=== PATIENT | male | born 1985 | race Hispanic/Latino ===

== ENCOUNTER 2016-10-07 13:15 | Emergency (ER) | payer OTHER ==
[~2016-10-07] VITALS: Ht 175.3 cm; Wt 90.7 kg
[~2016-10-07 13:15] MED LIST: AMOXIL500 MG PO; BENTYL20 MG PO; DOXYCYCLINE MO100 MG PO; IBUPROFEN600 MG PO; PROTONIX40 M3 PO; ZOFRAN ODT4 M1 PO; ZOFRAN4 M1 PO
--- NOTE | 2016-10-07 13:53 | ED CARDIAC/CP/PALPITATIONS ---
History of Present Illness General Chief Complaint: Chest Pain Stated Complaint: CHEST PAIN SINCE LAST NIGHT Source: patient Exam Limitations: no limitations Vital Signs & Intake/Output Vital Signs & Intake/Output Vital Signs Date Time Temp Pulse Resp B/P B/P Pulse O2 O2 Flow FiO2 Mean Ox Delivery Rate 10/07 1529 98.3 89 18 124/74 100 Room Air 10/07 1458 99 Room Air 10/07 1321 97.1 80 15 127/77 97 Room Air Room Air Allergies Coded Allergies: No Known Allergies (10/07/16) Reconcile Medications Albuterol Sulfate (Proair Hfa) 90 MCG HFA.AER.AD 2 PUF INH Q4-6 PRN PRN SOB Methylprednisolone. (Medrol) 4 MG TAB.DS.PK 1 DP PO AD wheezing 6 on day 1 then reduce by one tablet daily until gone Ondansetron (Zofran Odt) 4 MG TAB.RAPDIS 1-2 TAB PO Q8H PRN NAUSEA Pantoprazole Sodium (Protonix) 40 MG TABLET.DR 1 TAB PO DAILY UPPER ABDOMINAL PAIN Triage Note: PT TO ED FOR MID CHEST PAIN, STABBING AND CRUSHING IN NATURE, ALSO PAIN TO LEFT SIDE OF FACE AND DOWN LEFT ARM. +SOB, NO ACUTE DISTRESS NOTED. +HEADACHE WITH "FLASHES OF LIGHT" AND NAUSEA. PAIN STARTED LAST NIGHT WHILE AT WORK. Triage Nurses Notes Reviewed? yes Onset: Abrupt Duration: hour(s): (LAST NIGHT) Timing: single episode today Quality/Severity: moderate, severe, sharp, stabbing, PRESSURE Location: substernal, central Radiation: no radiation Activities at Onset: activity Prior Chest Pain/Card Workup: no prior chest pain Modifying Factors: Worsens With: movement, palpation. Nitro Today/Relief: no nitro taken today Aspirin Today: no aspirin today Associated Symptoms: headache, shortness of breath HPI: 31-year-old male with NO past medical history presents complaining of chest pain and shortness of breath that started last night. Patient reports he was working at [employer] when the pain started. Pain is located in the center of his chest and does not radiate it is described as stabbing and sharp. He rates the pain as an 8 out of 10 and does not radiate. Onset was acute quality was severe as it required patient to come to the emergency department. Patient is a current some day smoker. He denies any drug use fever coughing pain with deep breath, recent surgery recent trauma recent immobilization or any testosterone use. Pain is worse with movement of his upper body and with touching his chest. No other associated symptoms. He took some Advil yesterday with mild improvement. He denies any similar previous episodes. (ANNA MOMIN PA-C) Past History Travel History Traveled to [place] past 21 day No Medical History Any Pertinent Medical History? see below for history Neurological: NONE EENT: NONE Cardiovascular: NONE Respiratory: NONE Gastrointestinal: NONE Hepatic: NONE Renal: NONE Musculoskeletal: NONE Psychiatric: NONE Endocrine: NONE Blood Disorders: NONE Cancer(s): NONE SEXOLOGIST/Reproductive: NONE Surgical History Surgical History: non-contributory Psychosocial History Who do you live with Family Services at Home None What is your primary language Occitan Tobacco Use: Current Not Daily ETOH Use: occasional use Illicit Drug Use: denies illicit drug use Family History Hx Contributory? No (ANNA MOMIN PA-C) Review of Systems Review of Systems Constitutional: Reports: no symptoms. EENTM: Reports: no symptoms. Respiratory: Reports: see HPI, short of breath. Cardiovascular: Reports: see HPI, chest pain. GI: Reports: no symptoms. Genitourinary: Reports: no symptoms. Musculoskeletal: Reports: no symptoms. Skin: Reports: no symptoms. Neurological/Psychological: Reports: no symptoms. Hematologic/Endocrine: Reports: no symptoms. Immunologic/Allergic: Reports: no symptoms. All Other Systems: Reviewed and Negative (ANNA MOMIN PA-C) Physical Exam Physical Exam General Appearance: well developed/nourished, no apparent distress, alert, awake , anxious, mild distress Head: atraumatic, normal appearance Eyes: Bilateral: normal appearance, PERRL, EOMI. Ears, Nose, Throat: normal pharynx, normal ENT inspection, hearing grossly normal Neck: normal inspection, supple, full range of motion Respiratory: no respiratory distress, CHEST WALL IS TENDER TO PALPATION, diffuse wheezaing and rhonchi auscultated in all lobes. Improved with duo neb. Cardiovascular: regular rate/rhythm, normal peripheral pulses Peripheral Pulses: 2+ radial (R), 2+ radial (L) Gastrointestinal: normal bowel sounds, soft, non-tender, no organomegaly Back: normal inspection, normal range of motion, no vertebral tenderness Extremities: normal inspection, normal capillary refill, normal range of motion, no edema Neurologic/Psych: no motor/sensory deficits, awake, alert, oriented x 3, normal gait, normal mood/affect Reflexes: 2+: knee (R), knee (L). Skin: intact, normal color, warm/dry Lymphatic: no anterior cervical ariella Comments: Diffuse expiratory wheezing and rhonchi auscultated bilaterally. Symptoms improved after DuoNeb Core Measures ACS in differential dx? No Severe Sepsis Present: No Septic Shock Present: No (BLACK PA-C,ANNA) Progress Differential Diagnosis: AMI, aortic dissection, pericarditis, pneumonia, pneumothorax, pulmonary embolism, unstable angina, ACUTE BRONCHITS ASTHMA, MUSCLE STRAIN Plan of Care: Orders Procedure Date/time Status Telemetry/Scuba Dive Training Instructor 10/07 1357 Active TROPONIN LEVEL 10/07 1329 Complete COMPREHENSIVE METABOLIC PANEL 10/07 1329 Complete CBC WITHOUT DIFFERENTIAL 10/07 1329 Complete EKG 10/07 1316 Active Laboratory Tests 10/07/16 1345: Anion Gap 12, Estimated GFR > 60, BUN/Creatinine Ratio 17.8, Glucose 91, Calcium 9.1, Total Bilirubin 0.7, AST 51, ALT 52, Alkaline Phosphatase 101, Troponin I < 0.01, Total Protein 7.6, Albumin 4.1, Globulin 3.5, Albumin/Globulin Ratio 1.2, CBC w Diff NO MAN DIFF REQ, RBC 4.63 L, MCV 88.0, MCH 29.2, RDW 13.5, MPV 9.0, Gran % 76.6 H, Lymphocytes % 15.6 L, Monocytes % 7.1, Eosinophils % 0.4, Basophils % 0.3, Absolute Granulocytes 6.5, Absolute Lymphocytes 1.3, Absolute Monocytes 0.6, Absolute Eosinophils 0, Absolute Basophils 0, PUBS MCHC 33.1 Lung exam reveals diffuse wheezing and rhonchi throughout all lung feilds. Patient was given a DuoNeb and 125 of Solu-Medrol IV. Upon reassessment patient reports feeling completely better after DuoNeb and Solu-Medrol. He is no longer having any chest pain or shortness of breath. Symptoms are consistent with acute bronchitis. EKG and blood work are within normal limits other than mildly elevated white blood cell count which again could be related to acute bronchitis. Chest x-ray is negative for pneumonia or any other abnormalities. Patient will be discharged home on a Medrol Dosepak and albuterol inhaler. He' ll follow up with his primary care doctor this week or return to the emergency department as needed. Case was discussed with Dr. Alford who is in agreement with the plan. (ANNA MOMIN PA-C) Diagnostic Imaging: Viewed by Me: Radiology Read. Initial ED EKG: normal axis, normal intervals, normal p-waves, normal QRS complex, normal sinus rhythm, no ST T wave changes Prior EKG: unchanged Comments: EXAM TYPE: RAD - XRY-CHEST XRAY, PA AND LATERAL EXAMINATION: XR CHEST CLINICAL INFORMATION: Wheezing, chest pain COMPARISON: 08/20/2014 chest x-ray TECHNIQUE: 2 views of the chest were obtained. FINDINGS: Normal cardiomediastinal silhouette and pulmonary vascularity. The lungs are clear. The costophrenic angles are sharp. No pleural effusions or pneumothorax. The visualized bony thorax is unremarkable. IMPRESSION: No acute cardiopulmonary findings. DICTATED BY: GOMEZ DOZIER MD DATE/TIME DICTATED:10/07/161449 DRYING MACHINE OPERATOR PACKAGE YARNS:TUSHAR DATE/TIME TRANSCRIBED:10/07/161449 (ANNA MOMIN PA-C) Departure Departure Disposition: HOME OR SELF CARE Condition: Stable Clinical Impression Primary Impression: Chest pain Secondary Impressions: Acute bronchitis Referrals: MEGAN SAMPSON APRN (PCP/Family) Additional Instructions: Rest plenty of fluids quit smoking. Take steroids as directed for the full course. Use pro-air inhaler every 4-6 hours as needed for cough or shortness of breath. Tylenol/ibuprofen as appropriate as needed for pain. make a follow-up with your primary care doctor this week. Return to emergency Department with any concerns. Please go over all results of today's visit with your primary care doctor. Contact your primary care doctor to let them know you were here in the emergency room. There may be nonspecific findings which may not be related to your visit today here in the emergency room but may require further evaluation and chronic monitoring by your primary care doctor. If you had a laceration today the chance of foreign body always remains. You should follow-up with your primary care doctor for recheck in 3-5 days for a wound check. If you had an x-ray done there is a chance that a fracture could have been missed on initial read and you should follow-up with your primary care doctor for repeat x-rays if symptoms persist. If your blood pressure was elevated here in the emergency room please have rechecked by her primary care doctor within the next 48 hours by your primary care doctor. If you were prescribed a narcotic here in the emergency room or any type of controlled substances you're not allowed to drive while taking this medication or operate any type of heavy machinery. Narcotics can make you feel lightheaded dizziness nausea and can cause constipation. You may need to grape picker a stool softener. Thank you for choosing [facility] emergency room. Please return to the emergency room immediately if you have any other concerns worsening of symptoms. Departure Forms: Customer Survey General Discharge Information Prescriptions: Current Visit Scripts Methylprednisolone. (Medrol) 1 DP PO AD #1 DP 6 on day 1 then reduce by one tablet daily until gone Albuterol Sulfate (Proair Hfa) 2 PUF INH Q4-6 PRN PRN SOB #1 INHAL (ANNA MOMIN PA-C) PA/IMPORT CUSTOMS CLEARING AGENT Co-Sign Statement Statement: ED Attending supervision documentation- I saw and evaluated the patient. I have also reviewed all the pertinent lab results and diagnostic results. I agree with the findings and the plan of care as documented in the PA's/IMPORT CUSTOMS CLEARING AGENT's documentation. x I have reviewed the ED Record and agree with the PA's/IMPORT CUSTOMS CLEARING AGENT's documentation. [] Additions or exceptions (if any) to the PAs/IMPORT CUSTOMS CLEARING AGENT's note and plan are summarized below: [] (ABIEL HERRERA,REYES) Critical Care Note Critical Care Note Critical Care Time: non-applicable (ANNA MOMIN PA-C)
[2016-10-07 14:07] LABS: ABSOLUTE BASOPHIL COUNT 0 /CUMM (0.0-0.2); ABSOLUTE EOSINOPHIL COUNT 0 /CUMM (0.0-0.7); ABSOLUTE GRANULOCYTE CT 6.5 /CUMM (1.4-6.5); ABSOLUTE LYMPH COUNT 1.3 /CUMM (1.2-3.4); ABSOLUTE MONOCYTE COUNT 0.6 /CUMM (0.10-0.60); BASOPHIL % 0.3 % (0.0-2.0); EOSINOPHIL % 0.4 % (0-5); GRANULOCYTE % 76.6 % (42.2-75.2); HEMATOCRIT 40.7 % (42-52); MEAN CORPUSCULAR HGB 29.2 PG (27.0-31.0); MEAN CORPUSCULAR HGB CONC 33.1 G/DL (33.0-37.0); PLATELET COUNT 259 /CUMM (130-400); RBC DISTRIBUTION WIDTH 13.5 % (11.5-14.5); RED BLOOD CELL CT 4.63 /CUMM (4.70-6.10); WHITE BLOOD CELL COUNT 8.5 /CUMM (4.8-10.8)
--- NOTE | 2016-10-07 14:54 | RADIOLOGY REPORT ---
EXAMINATION: XR CHEST CLINICAL INFORMATION: Wheezing, chest pain COMPARISON: 08/20/2014 chest x-ray TECHNIQUE: 2 views of the chest were obtained. FINDINGS: Normal cardiomediastinal silhouette and pulmonary vascularity. The lungs are clear. The costophrenic angles are sharp. No pleural effusions or pneumothorax. The visualized bony thorax is unremarkable. IMPRESSION: No acute cardiopulmonary findings.
[2016-10-07] MEDS ORDERED: PROAIR HFA8.5 GM INH (15:12)
[2016-10-07] MEDS ORDERED: MEDROL4 M2 PO (15:12)
[2016-10-07 15:29] VITALS: BP 124/74
== END 2016-10-07 15:30 ==
LOC: ERH 13:15
PROVIDERS: Physician Assistant Medical
DX: J20.9 Acute bronchitis, unspecified (principal); R07.89 Other chest pain
CPT/HCPCS: 1263; 93005; 93010; 96374; J2930